=== PATIENT | female | born 1995 | race Two or more races ===

== ENCOUNTER 2022-02-22 18:00 | Inpatient (IN) | payer OTHER ==
[~2022-02-22] VITALS: Ht 157.5 cm; Wt 77.6 kg
[2022-02-22] MEDS ORDERED: ceFAZolin Sod. 2,000 MG in DEXTROSE 5% 100 ML IV ONE (18:45)
[2022-02-22] MEDS ORDERED: LACTATED RINGERS 1,000 ML IV SCH (18:45)
[2022-02-22] MEDS ORDERED: METHYLERGONOVINE 0.2 MG/ML AMP IM PRN ×2 (18:50→21:25)
[2022-02-22 19:19] LABS: BASOPHILS % (AUTO) 0.4 % (0.0-2.0); EOSINOPHILS % (AUTO) 0.3 % (0.0-4.0); HEMATOCRIT 38.1 % (36-48); HEMOGLOBIN 13.4 g/dL (12.0-16.0); LYMPHOCYTES # (AUTO) 2.1 K/uL (2.5-16.5); LYMPHOCYTES % (AUTO) 22.8 % (20.5-51.1); MEAN CORPUSCULAR HEMOGLOBIN 29 pg (27-31); MEAN CORPUSCULAR HGB CONC 35 g/dL (33-37); MEAN CORPUSCULAR VOLUME 83.2 fL (80-94); MONOCYTES # (AUTO) 0.7 K/uL (0.8-1.0); MONOCYTES % (AUTO) 7.4 % (1.7-9.3); NEUTROPHILS # (AUTO) 6.3 K/uL (1.8-7.7); NEUTROPHILS % (AUTO) 69.1 % (42.2-75.2); PLATELET COUNT (AUTO) 230 K/uL (140-450); RED BLOOD CELL COUNT(AUTO) 4.58 MIL/uL (4.20-5.40); RED CELL DISTRIBUTION WIDTH 15.3 % (11.6-13.7); WHITE BLOOD COUNT (AUTO) 9.2 K/uL (4.8-10.8)
[2022-02-22] MEDS ORDERED: CARBOPROST 250 MCG/ML AMP IM ONE (19:30)
[2022-02-22] MEDS ORDERED: CITRIC ACID/SODIUM CITRATE 30 ML UDC PO ONE (19:30)
[2022-02-22 19:35] VITALS: BP 109/65
[2022-02-22 19:38] LABS: PROTHROMBIN TIME 9.2 secs (10.8-13.4)
[2022-02-22 19:40] LABS: APPEARANCE,URINE CLEAR (CLEAR); BILIRUBIN,URINE NEGATIVE (NEGATIVE); BLOOD, URINE TRACE-I (NEGATIVE); COLOR,URINE YELLOW (YELLOW); LEUKOCYTE ESTERASE ,URINE NEGATIVE (NEGATIVE); NITRITE, URINE NEGATIVE (NEGATIVE); UGLUCOSE NEGATIVE (NEGATIVE)
[2022-02-22] MEDS ORDERED: ceFAZolin 2,000 MG VIAL ONE (19:56)
[2022-02-22 19:58] LABS: ALBUMIN 2.9 g/dL (3.4-5.0); ANION GAP 14.5 (8-16); CARBON DIOXIDE 23.2 mmol/L (21-32); CREATININE 0.4 mg/dL (0.6-1.3); POTASSIUM 3.7 mmol/L (3.5-5.1); TOTAL BILIRUBIN 0.3 mg/dL (0.0-1.0)
[2022-02-22] MEDS ORDERED: MORPHINE PRES FREE 10 MG/10 ML AMP IV ONE (20:06)
[2022-02-22] MEDS ORDERED: diphenhydrAMINE 50 MG/ML VIAL IVP PRN (20:30)
[2022-02-22] MEDS ORDERED: OXYTOCIN 20 UNITS in LACTATED RINGERS 1,000 ML IV SCH (20:30)
[2022-02-22] MEDS ORDERED: KETOROLAC 30 MG/ML VIAL IVP PRN (20:30)
[2022-02-22] MEDS ORDERED: NALOXONE 0.4 MG/ML VIAL IVP PRN (20:30)
[2022-02-22] MEDS ORDERED: OXYTOCIN 20 UNITS/LR PREMIX 1,000 ML IV ONE (20:45)
[2022-02-22] MEDS ORDERED: ACETAMINOPHEN 100 ML IV ONE (21:21)
[2022-02-22] MEDS ORDERED: oxyCODONE/APAP 5/325 MG 1 TAB TAB PO PRN (21:25)
[2022-02-22] MEDS ORDERED: MEASLES, MUMPS, AND RUBELLA 1 VIAL SQVAC ONE (21:25)
[2022-02-22 21:32] LABS: RBC,URINE 0-5 /HPF (0-5); WBC,URINE 0-5 /HPF (0-5)
[2022-02-23] MEDS: OXYTOCIN 20 UNITS in LACTATED RINGERS 1,000 ML IV SCH ×2 (01:31→10:05)
[2022-02-23 05:38] LABS: BASOPHILS # (AUTO) 0.1 K/uL (0.00-0.22); BASOPHILS % (AUTO) 0.5 % (0.0-2.0); EOSINOPHILS % (AUTO) 0.3 % (0.0-4.0); HEMATOCRIT 35.2 % (36-48); HEMOGLOBIN 12.3 g/dL (12.0-16.0); LYMPHOCYTES # (AUTO) 1.9 K/uL (2.5-16.5); LYMPHOCYTES % (AUTO) 16.1 % (20.5-51.1); MEAN CORPUSCULAR HEMOGLOBIN 29 pg (27-31); MEAN CORPUSCULAR HGB CONC 35 g/dL (33-37); MEAN CORPUSCULAR VOLUME 83.2 fL (80-94); MONOCYTES # (AUTO) 0.8 K/uL (0.8-1.0); MONOCYTES % (AUTO) 6.9 % (1.7-9.3); NEUTROPHILS # (AUTO) 8.7 K/uL (1.8-7.7); NEUTROPHILS % (AUTO) 76.2 % (42.2-75.2); PLATELET COUNT (AUTO) 183 K/uL (140-450); RED BLOOD CELL COUNT(AUTO) 4.24 MIL/uL (4.20-5.40); RED CELL DISTRIBUTION WIDTH 15.9 % (11.6-13.7); WHITE BLOOD COUNT (AUTO) 11.5 K/uL (4.8-10.8)
[2022-02-23] MEDS: bisacodyL 10 MG SUPP RC SCH (09:00)
[2022-02-23] MEDS ORDERED: OXYTOCIN 20 UNITS/LR PREMIX 1,000 ML IV ONE (09:45)
--- NOTE | 2022-02-23 09:54 | NUR ---
PATIENT HAS BEEN SCREENED AND CATEGORIZED LOW NUTRITION RISK. PATIENT WILL BE SEEN WITHIN 7 DAYS OF ADMISSION. 03/01/22 REVIEWED BY SEDA LAZ[address]
[2022-02-23] MEDS: SIMETHICONE 80 MG TAB.CHEW PO PRN (21:26)
[2022-02-23] MEDS: IBUPROFEN 800 MG TAB PO PRN (21:26)
[2022-02-24] MEDS: IBUPROFEN 800 MG TAB PO PRN ×3 (03:30→17:34)
[2022-02-24] MEDS: bisacodyL 10 MG SUPP RC SCH (09:16)
[2022-02-24] MEDS: SIMETHICONE 80 MG TAB.CHEW PO PRN (17:34)
== END 2022-02-24 19:11 | disposition home or self-care (01) | DRG 540 ==
LOC: MFCC 18:00 → OBSVTOIN 19:30 → MFCC 22:19
PROVIDERS: ADMIT Obstetrics & Gynecology; ATTEND Obstetrics & Gynecology
PROC: 10D00Z1 Extraction of Products of Conception, Low, Open Approach (ICD-10-PCS; principal; 2022-02-22 20:00)
DX: O34.211 Maternal care for low transverse scar from previous cesarean delivery (principal); Z20.822 Contact with and (suspected) exposure to COVID-19; Z37.0 Single live birth; Z3A.37 37 weeks gestation of pregnancy
CPT/HCPCS: 36415; 51702; 80053; 81001; 85025; 85610; 85730; 86592; 86886; 86900; 86901; J2270; J2590; J7120